=== PATIENT | female | born 1975 | race Caucasian/White ===

== ENCOUNTER 2016-11-19 21:45 | Observation (INO) | payer BC ==
[~2016-11-19] VITALS: Ht 165.1 cm; Wt 62.5 kg
[~2016-11-19 21:45] MED LIST: ALDOMET250 MG PO; ALPRAZOLAM0.25 M2 PO; AUGMENTIN875 MG PO; DICLEGIS DR 101 EACH PO; FAMOTIDINE40 MG PO; HYDROCODON-ACE1 EAC7 PO; IRON325 M1 PO; KEFLEX500 MG PO; MUCINEX600 MG PO; NORMODYNE,TRAN200 MG PO; PRENATAL TABLE1 EAC3 PO; PROTONIX40 MG PO; SERTRALINE HCL50 MG PO
[2016-11-19 22:40] LABS: HEMATOCRIT 33.2 % (36.0-46.0); MCHC 31.9 G/DL (30.0-36.0); MCV 84.5 FL (83-99); MEAN PLAT.VOLUME 9.4 uM^3 (9.5-12.4); PLATELET COUNT 388 K/uL (156-360); RBC DIS.WIDTH-CV 16.7 % (11.8-14.6); RBC DIS.WIDTH-SD 51.7 % (39-53); RED BLOOD COUNT 3.93 M/uL (3.80-5.20); WHITE BLOOD COUNT 27.7 K/uL (4.1-10.2)
[2016-11-19 22:49] LABS: CHLORIDE 102 mEq/L (99-109); POTASSIUM 3.3 mEq/L (3.7-5.4); SODIUM 138 mEq/L (136-147)
[2016-11-19 22:51] LABS: GLUCOSE 127 mg/dL (70-99)
[2016-11-19 22:52] LABS: ANION GAP 11 MEQ/L (2-14)
[2016-11-19 22:55] LABS: GFR ESTIMATE (CALCULATED) > 59 mL/min/
[2016-11-19 22:56] LABS: UREA NITROGEN (BUN) 12 mg/dL (9-23)
[2016-11-19 23:03] LABS: TROP-I INTERPRETATION NEGATIVE; TROPONIN-I < 0.01 ng/mL (0.0-0.30)
[2016-11-19 23:04] LABS: ADD MIUA? YES; BILIRUBIN NEGATIVE; BLOOD LARGE; COLOR YELLOW ((YELLOW)); GLUCOSE (STRIP) NEGATIVE; KETONES NEGATIVE; LEUKOCYTES SMALL; NITRITE POSITIVE; PROTEIN (STRIP) 100; SPECIFIC GRAVITY 1.026 (1.000-1.030)
[2016-11-19 23:12] LABS: BACTERIA 3+ /HPF; EPITHELIAL CELLS 1+ /HPF; MUCUS 2+ /LPF; RED BLOOD CELLS 20-30 /HPF (0-5); WHITE BLOOD CELLS 15-20 /HPF (0-5)
[2016-11-20] MEDS ORDERED: LEXAPRO20 MG PO (01:29)
[2016-11-20] MEDS ORDERED: PRINIVIL20 MG PO (01:29)
[2016-11-20] MEDS ORDERED: ATORVASTATIN CA40 MG PO (01:30)
[2016-11-20] MEDS ORDERED: XANAX0.5 MG PO (01:30)
[2016-11-20 04:23] VITALS: BP 109/66
[2016-11-20 07:18] LABS: INTERNAL CONTROL VALID? YES
[2016-11-20 07:53] VITALS: BP 112/66
[2016-11-20 10:09] LABS: HEMATOCRIT 28.6 % (36.0-46.0); MCH 27.5 PG (29.0-34.0); MCHC 32.2 G/DL (30.0-36.0); MCV 85.6 FL (83-99); MEAN PLAT.VOLUME 9.9 uM^3 (9.5-12.4); PLATELET COUNT 396 K/uL (156-360); RBC DIS.WIDTH-SD 53.1 % (39-53); RED BLOOD COUNT 3.34 M/uL (3.80-5.20); WHITE BLOOD COUNT 18.4 K/uL (4.1-10.2)
[2016-11-20 10:21] LABS: ANION GAP 7 MEQ/L (2-14); CHLORIDE 104 MEQ/L (99-109); POTASSIUM 3.9 MEQ/L (3.7-5.4); SAMPLE HEMOLYSIS CHECK 0; SAMPLE ICTERIC CHECK 0; SAMPLE LIPEMIA CHECK 0; SODIUM 138 MEQ/L (136-147)
[2016-11-20 10:27] LABS: GFR ESTIMATE (CALCULATED) > 59 mL/min/; GLUCOSE 106 mg/dL (70-99); UREA NITROGEN (BUN) 8 mg/dL (9-23)
[2016-11-20 10:30] LABS: TROP-I INTERPRETATION NEGATIVE; TROPONIN-I < 0.01 ng/mL (0.0-0.30)
[2016-11-20 11:35] VITALS: BP 94/60
[2016-11-20 12:26] LABS: INTER. NORMALIZED RATIO 1.3; PROTHROMBIN TIME 14.7 SEC (10.2-12.9)
[2016-11-20 12:29] LABS: PTT 30.5 SEC (25-37)
[2016-11-20] MEDS ORDERED: PEPCID40 MG PO (12:59)
[2016-11-20] MEDS ORDERED: VENTOLIN HFA18 GM IH (13:00)
[2016-11-20] MEDS ORDERED: ERGOCALCIF50000 UNIT PO (13:01)
[2016-11-20] MEDS ORDERED: ADVAIR 250/501 DISK IH (13:01)
[2016-11-20] MEDS ORDERED: ALLERGY RELIEF180 MG PO (13:02)
[2016-11-20 14:57] LABS: TYPE OF FLUID PLEURAL
[2016-11-20 15:20] LABS: BODY FLUID RBC'S 1000 /MM^3 (0-100); BODY FLUID WBC'S 2996 /MM^3 (0-500)
[2016-11-20 15:30] VITALS: BP 100/57
[2016-11-20 15:35] LABS: BODY FLUID LDH 101 IU/L; BODY FLUID PROTEIN 3.5 G/DL
[2016-11-20 16:48] LABS: BODY FLUID EOSINOPHILS 0 % (0-25); MONONUCLEAR WBC'S 12 %; POLYNUCLEAR WBC'S 88 % (0-25)
[2016-11-20 17:50] LABS: LACTATE DEHYDROGENASE 198 IU/L (20-246)
[2016-11-20 19:30] VITALS: BP 104/60
[2016-11-21 03:03] VITALS: BP 115/78
[2016-11-21 05:19] LABS: BASOPHIL COUNT 0.1 K/uL (0-0.1); EOSINOPHIL (%) 1.5 % (0-5); EOSINOPHIL COUNT 0.2 K/uL (0-0.3); HEMATOCRIT 33.2 % (36.0-46.0); IMMATURE GRANULOCYTE (%) 0.5 % (0.0-0.7); IMMATURE GRANULOCYTE COUNT 0.1 K/uL; INSTRUMENT ABS NEUTROPHIL CT 12.1 K/uL; LYMPHOCYTE COUNT 2.5 K/uL (1.0-2.8); MCH 26.4 PG (29.0-34.0); MCHC 30.4 G/DL (30.0-36.0); MCV 86.7 FL (83-99); MEAN PLAT.VOLUME 9.8 uM^3 (9.5-12.4); MONOCYTE (%) 7.4 % (3-12); MONOCYTE COUNT 1.2 K/uL (0-0.8); NEUTROPHIL (%) 74.9 % (45-76); NEUTROPHIL COUNT 12.1 K/uL (1.8-6.4); PLATELET COUNT 403 K/uL (156-360); RBC DIS.WIDTH-CV 16.7 % (11.8-14.6); RBC DIS.WIDTH-SD 52.8 % (39-53); RED BLOOD COUNT 3.83 M/uL (3.80-5.20); WHITE BLOOD COUNT 16.1 K/uL (4.1-10.2)
[2016-11-21 05:41] LABS: ANION GAP 8 MEQ/L (2-14); CHLORIDE 105 MEQ/L (99-109); GFR ESTIMATE (CALCULATED) > 59 mL/min/; GLUCOSE 88 mg/dL (70-99); POTASSIUM 3.8 MEQ/L (3.7-5.4); SAMPLE HEMOLYSIS CHECK 0; SAMPLE ICTERIC CHECK 0; SAMPLE LIPEMIA CHECK 0; SODIUM 140 MEQ/L (136-147); UREA NITROGEN (BUN) 9 mg/dL (9-23)
[2016-11-21 09:00] VITALS: BP 111/87
[2016-11-21 12:01] VITALS: BP 121/74
[2016-11-21] MEDS ORDERED: FLUCONAZOLE150 MG PO ×2 (12:35→12:36)
[2016-11-21] MEDS ORDERED: IBUPROFEN800 MG PO (12:35)
[2016-11-21] MEDS ORDERED: COLCHICINE0.6 M1 PO (12:35)
[2016-11-21] MEDS ORDERED: BACTRIM,SEPT1 TABLET PO (12:35)
[2016-11-22 03:35] LABS: BODY FLUID PH 7.9 (())
== END 2016-11-21 14:47 | disposition home or self-care (01) ==
LOC: EME 21:45 → 4EAST 11-20 03:21 → EDOF 11-20 03:21 → 4EAST 11-20 03:21 → ENRESERV 11-20 03:22 → 4EAST 11-20 04:10 → ENPENDDIS 11-21 → 4EAST 11-21 13:39
PROVIDERS: Emergency Medicine; Hospitalist; Internal Medicine; Radiology Diagnostic Radiology
PROC: 0W9B3ZZ Drainage of Left Pleural Cavity, Percutaneous Approach (ICD-10-PCS; principal; 2016-11-20)
DX: I31.3 Pericardial effusion (noninflammatory) (principal); N39.0 Urinary tract infection, site not specified; J18.9 Pneumonia, unspecified organism; J91.8 Pleural effusion in other conditions classified elsewhere; D72.829 Elevated white blood cell count, unspecified; I10 Essential (primary) hypertension; Z88.8 Allergy status to other drugs, medicaments and biological substances
CPT/HCPCS: 71010; 71020; 71275; 76942; 80048; 81003; 83605; 83615; 83615 91; 83880; 83986 90; 84155; 84157; 84484; 85025; 85027; 85379; 85610; 85651; 85730; 87040; 87070; 87075; 87077; 87086; 87186; 87205; 87449; 88108; 88305; 89051; 93005; 93306; 99202; 99281; 99285; G0378; J0456; J0696; J1650; J2270; J2405; J2543; J7040; J7050